=== PATIENT | female | born 1940 | race Two or more races ===

== ENCOUNTER 2017-11-15 11:08 | Outpatient (CLI) | payer OTHER ==
[~2017-11-15 11:08] MED LIST: BENAZEPRIL HCL10 MG; RAYOS5 MG
== END 2017-11-15 11:18 | disposition home or self-care (01) ==
LOC: LAB 11:08
DX: A49.2 Hemophilus influenzae infection, unspecified site (principal)

== ENCOUNTER 2017-11-15 11:59 | Outpatient (CLI) | payer OTHER | END 2017-11-15 12:06 | disposition home or self-care (01) | LOC: RAD 501 11:59 | DX: J44.1 Chronic obstructive pulmonary disease with (acute) exacerbation (principal) ==

== ENCOUNTER 2018-05-30 13:08 | Outpatient (CLI) | payer OTHER | END 2018-05-30 13:11 | disposition home or self-care (01) | LOC: SONOGRAMA 13:08 | DX: R22.1 Localized swelling, mass and lump, neck (principal) ==

== ENCOUNTER 2019-01-28 10:44 | Outpatient (CLI) | payer OTHER | END 2019-01-28 10:58 | disposition home or self-care (01) | LOC: NUCLEAR 10:44 | DX: C78.00 Secondary malignant neoplasm of unspecified lung (principal) | CPT/HCPCS: 78802; A9556 ==

== ENCOUNTER 2019-03-14 12:53 | Outpatient (CLI) | payer OTHER | END 2019-03-14 13:15 | disposition home or self-care (01) | LOC: LAB 12:53 | DX: K60.0 Acute anal fissure (principal); N39.0 Urinary tract infection, site not specified; R82.79 Other abnormal findings on microbiological examination of urine ==

== ENCOUNTER 2021-01-14 07:14 | Outpatient (CLI) | payer OTHER | END 2021-01-14 07:15 | disposition home or self-care (01) | LOC: NUCLEAR 07:14 | PROVIDERS: ATTEND Internal Medicine | DX: K30 Functional dyspepsia (principal); K31.84 Gastroparesis | CPT/HCPCS: 78264; A9541 ==

== ENCOUNTER 2021-10-20 10:55 | Outpatient (CLI) | payer OTHER | END 2021-10-20 10:57 | disposition home or self-care (01) | LOC: RAD 10:55 | PROVIDERS: ATTEND Internal Medicine | DX: M54.2 Cervicalgia (principal) ==

== ENCOUNTER 2022-02-09 12:51 | Outpatient (CLI) | payer OTHER | END 2022-02-09 12:58 | disposition home or self-care (01) | LOC: RAD 12:51 | PROVIDERS: ATTEND Internal Medicine | DX: J44.1 Chronic obstructive pulmonary disease with (acute) exacerbation (principal) ==

== ENCOUNTER 2022-04-11 13:54 | Outpatient (CLI) | payer OTHER | END 2022-04-11 13:59 | disposition home or self-care (01) | LOC: RAD 13:54 | PROVIDERS: ATTEND Orthopaedic Surgery | DX: M25.552 Pain in left hip (principal) ==

== ENCOUNTER 2022-04-18 12:07 | Outpatient (CLI) | payer OTHER | END 2022-04-18 12:41 | disposition home or self-care (01) | LOC: RAD 12:07 | PROVIDERS: ATTEND Orthopaedic Surgery | DX: M54.50 Low back pain, unspecified (principal) ==

== ENCOUNTER → 2022-05-25 | Outpatient (CLI) | payer OTHER | END | disposition home or self-care (01) | LOC: SONOGRAMA 12:46 | PROVIDERS: ATTEND Internal Medicine | DX: S40.912A Unspecified superficial injury of left shoulder, initial encounter (principal) ==

== ENCOUNTER 2022-08-10 10:28 | Outpatient (CLI) | payer OTHER | END 2022-08-10 10:52 | disposition home or self-care (01) | LOC: RAD 10:28 | PROVIDERS: ATTEND Internal Medicine | DX: S80.911D Unspecified superficial injury of right knee, subsequent encounter (principal) ==

== ENCOUNTER 2022-11-23 07:28 | Outpatient (CLI) | payer OTHER | END 2022-11-23 08:00 | disposition home or self-care (01) | LOC: TOM 07:28 | PROVIDERS: ATTEND Internal Medicine | DX: H92.09 Otalgia, unspecified ear (principal) | CPT/HCPCS: 70470; Q9965 ==